=== PATIENT | male | born 1980 ===

== ENCOUNTER 2019-02-13 06:29 | Emergency (ER) | payer OTHER ==
[2019-02-13 06:36] VITALS: BP 139/85
--- NOTE | 2019-02-13 08:35 | Emergency Department Report ---
ED General Adult HPI - General Chief complaint: Extremity Injury, Lower Stated complaint: CUT ON R FOOT/SMALL TOE Time Seen by Provider: 02/13/19 08:07 Source: patient Mode of arrival: Ambulatory Limitations: No Limitations - History of Present Illness Initial comments: 38-year-old male presents to ED with a cut between the fourth and fifth toes on the right foot. Patient states it is been present for "a couple of weeks." Patient denies fever, redness, purulent drainage. Patient states he has been soaking his foot in Epsom salt and using triple antibiotic ointment. Patient reports continued pain and swelling of the fifth toe. -: week(s) (2) Location: right, lower extremity Quality: burning, sharp Consistency: constant Improves with: medication Worsens with: movement Associated Symptoms: denies: fever/chills - Related Data Previous Rx's Medication Instructions Recorded Last Taken Type Naproxen [Naprosyn] 500 mg PO BID #20 tablet 02/13/19 Unknown Rx Sulfamethoxazole/Trimethoprim 1 each PO BID 7 Days #14 tablet 02/13/19 Unknown Rx [Bactrim DS TAB] Allergies Allergy/AdvReac Type Severity Reaction Status Date / Time No Known Allergies Allergy Unverified 02/13/19 07:09 ED Review of Systems ROS: Stated complaint: CUT ON R FOOT/SMALL TOE Other details as noted in HPI Comment: All other systems reviewed and negative Constitutional: denies: fever Musculoskeletal: as per HPI ED Past Medical Hx - Past Medical History Previous Medical History?: No - Surgical History Past Surgical History?: Yes - Social History Smoking Status: Current Every Day Smoker Substance Use Type: None - Medications Home Medications: Home Medications Medication Instructions Recorded Confirmed Last Taken Type Naproxen [Naprosyn] 500 mg PO BID #20 tablet 02/13/19 Unknown Rx Sulfamethoxazole/Trimethoprim 1 each PO BID 7 Days #14 tablet 02/13/19 Unknown Rx [Bactrim DS TAB] ED Physical Exam - General Limitations: No Limitations General appearance: alert, in no apparent distress - Head Head exam: Present: atraumatic, normocephalic - Eye Eye exam: Present: normal appearance - ENT ENT exam: Present: mucous membranes moist - Neck Neck exam: Present: normal inspection - Respiratory Respiratory exam: Present: normal lung sounds bilaterally. Absent: respiratory distress - Cardiovascular Cardiovascular Exam: Present: regular rate, normal rhythm - GI/Abdominal GI/Abdominal exam: Absent: distended - Extremities Exam Extremities exam: Present: other (small opening in the skin approx 1 cm long between right 4th and 5th toes; no erythema or purulent discharge; mild swelling of right 5th toe) - Neurological Exam Neurological exam: Present: alert, oriented X3. Absent: motor sensory deficit - Psychiatric Psychiatric exam: Present: normal affect, normal mood - Skin Skin exam: Present: warm, dry, intact ED Course Vital Signs 02/13/19 06:34 Temperature 98.5 F Pulse Rate 76 Respiratory 18 Rate Blood Pressure 139/85 O2 Sat by Pulse 98 Oximetry ED Medical Decision Making - Differential Diagnosis cellulitis Critical care attestation.: If time is entered above; I have spent that time in minutes in the direct care of this critically ill patient, excluding procedure time. ED Disposition Clinical Impression: Cellulitis of toe of right foot Disposition: DC- TO HOME OR SELFCARE Is pt being admited?: No Condition: Stable Instructions: Cellulitis (ED) Prescriptions: Sulfamethoxazole/Trimethoprim [Bactrim DS TAB] 1 each PO BID 7 Days #14 tablet Naproxen [Naprosyn] 500 mg PO BID #20 tablet Referrals: KIKI NAVARRO DPM [Staff Physician] - 3-5 Days [facility] [Provider Group] - 3-5 Days [facility] [Outside] - 3-5 Days Time of Disposition: 08:38
== END 2019-02-13 08:56 | disposition home or self-care (01) ==
LOC: ED 06:29
DX: L03.031 Cellulitis of right toe (principal); F17.200 Nicotine dependence, unspecified, uncomplicated; Z79.899 Other long term (current) drug therapy
CPT/HCPCS: 99282